=== PATIENT | female | born 1975 | race Caucasian/White ===

== ENCOUNTER 2021-04-10 14:56 | Emergency (ER) | payer MEDICARE, OTHER ==
[~2021-04-10 14:56] MED LIST: BREO ELLIPTA 11 EACH INH; CARAFATE S500 MG/TSP PO; DUONEB 2.5-0.5M1 AMP INH; FUROSEMIDE 40MG40 MG PO; HYDROCODON-ACE1 EAC4 PO; IBUPROFEN800 MG PO; IMDUR 30MG TABL30 MG PO; INCRUSE ELLI62.5 MCG INH; K-DUR20 MEQ PO; LASIX40 MG PO; LEVAQUIN500 MG PO; LEVEMIR VI100 UNITS/ SC; NORCO 10-325 T1 EACH PO; OXYGEN; PEPCID AC20 MG PO; PREDNISONE 20MG20 MG PO; ZOFRAN4 MG SL
== END 2021-04-10 23:16 | disposition home or self-care (01) ==
LOC: FER 14:56
DX: U07.1 COVID-19 (principal); E11.9 Type 2 diabetes mellitus without complications; J44.9 Chronic obstructive pulmonary disease, unspecified; F17.210 Nicotine dependence, cigarettes, uncomplicated; Z79.4 Long term (current) use of insulin; Z88.2 Allergy status to sulfonamides; Z88.6 Allergy status to analgesic agent
CPT/HCPCS: 71045; J1100; J1885; M0243; Q0244; U0002